=== PATIENT | female | born 1995 ===

== ENCOUNTER 2017-01-20 16:29 | Emergency (ER) | payer OTHER ==
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
[2017-01-20] MEDS ORDERED: IBUPROFEN 600 MG TAB PO ONE (17:27)
[2017-01-20 18:05] VITALS: BP 129/78; PULSE 80; RESP 14; TEMP 97.9; O2SAT 94
== END 2017-01-20 18:04 | disposition home or self-care (01) ==
DX: S19.9XXA Unspecified injury of neck, initial encounter (principal); S39.92XA Unspecified injury of lower back, initial encounter; V49.40XA Driver injured in collision with unspecified motor vehicles in traffic accident, initial encounter; Y92.410 Unspecified street and highway as the place of occurrence of the external cause; Y99.8 Other external cause status; Y93.89 Activity, other specified